=== PATIENT | male | born 1940 | race Caucasian/White ===

== ENCOUNTER 2023-07-13 19:33 | Emergency (ER) | payer BC, SELFPAY ==
[2023-07-13 19:36] VITALS: BP 160/76; PULSE 90; TEMP 37; O2SAT 94; BMI 28.3
--- NOTE | 2023-07-13 19:41 | ED.GENADUL1 ---
HPI HPI - General Adult General Chief complaint: Epistaxis Stated complaint: Epistaxis Time Seen by Provider: 07/13/23 19:35 Source: patient and family Mode of arrival: walk-in History of Present Illness HPI narrative: this 82-year-old male who has a history of heart disease with 3 or 4 coronary stents presents for evaluation of a right-sided nosebleed. The patient states he was sitting watching television when blood started pouring out of the right side of his nose. He states that he soaked through several Corby her cheeks and a Tylenol before coming to the emergency department. He denies any recent nose trauma nasal congestion or nose picking. Upon presentation the bleeding has ceased. He has no chest pain or shortness of breath. He states that other than nosebleed he feels fine.He is unclear exactly what medications he is on but in light of his history of coronary artery disease he is likely on some degree of blood thinners. He denies that he takes any aspirin, He was formerly on aspirin but is not currently on any aspirin. Related Data Home Medications ?Medication ?Instructions ?Recorded ?Confirmed alfuzosin 10 mg tablet,extended 10 mg PO DAILY 07/13/23 07/13/23 release 24 hr atorvastatin 80 mg tablet 80 mg PO QPM 07/13/23 07/13/23 budesonide-formoterol HFA 80 1 puff inhalation DAILY 07/13/23 07/13/23 mcg-4.5 mcg/actuation aerosol inhaler (Breyna) dapagliflozin propanediol 5 mg 5 mg PO DAILY 07/13/23 07/13/23 tablet lisinopril 10 mg tablet 10 mg PO QAM 07/13/23 07/13/23 metformin 850 mg tablet 850 mg PO TID 07/13/23 07/13/23 metoprolol succinate 50 mg 50 mg PO DAILY 07/13/23 07/13/23 tablet,extended release 24 hr potassium citrate 10 mEq (1,080 10 meq PO BID 07/13/23 07/13/23 mg) tablet,extended release spironolactone 25 mg tablet 25 mg PO DAILY 07/13/23 07/13/23 Allergies Allergy/AdvReac Type Severity Reaction Status Date / Time No Known Drug Allergies Allergy Verified 07/13/23 19:41 Opioid HPI Opioid Management Most Recent Opioid Data: Last Pain Scale 7 07/13/23 20:21 Review of Systems ROS Status of ROS 10 or more systems reviewed and unremarkable except as noted in history and below Exam Narrative Exam Narrative: Nurses note and vital signs reviewed and patient is not hypoxic.Blood pressure is elevated at 160/76 General: Alert, nontoxic but mildly anxious elderly male, no respiratory distress Skin: Warm, dry, no pallor noted. There is no rash noted. Head: Normocephalic, atraumatic Eye: Normal conjunctiva, no drainage, EOMI. PERRL Ears, Nose, Mouth, and Throat: oral mucosa is moist. Nares patent. No active bleeding is present, there is a small amount of blood in the posterior nasopharynx, no site of bleeding is able to be visualized. Cardiovascular: Regular Rate and Rhythm Respiratory: Patient is in no distress, no accessory muscle use, lungs are clear to auscultation, no wheezing, rales or rhonchi Back: non-tender, no CVA tenderness bilaterally to percussion. GI: Normal bowel sounds, no tenderness to palpation, no masses appreciated. No rebound, guarding, or rigidity noted. Musculoskeletal: The patient has no evidence of calf tenderness, no pitting edema, symmetrical pulses noted bilaterally Neurological: A&O x4, normal speech Psychiatric: Cooperative Constitutional Vital Signs, click to edit/add: Last Vital Signs Temp 98.6 F 07/13/23 19:36 Pulse 90 07/13/23 19:36 Resp 18 07/13/23 19:36 BP 160/76 H 07/13/23 19:36 Pulse Ox 94 L 07/13/23 19:36 O2 Del Method Room Air 07/13/23 19:36 Course Vital Signs Vital signs: Vital Signs Temperature 98.6 F 07/13/23 19:36 Pulse Rate 90 07/13/23 19:36 Respiratory Rate 18 07/13/23 19:36 Blood Pressure 160/76 H 07/13/23 19:36 Pulse Oximetry 94 L 07/13/23 19:36 Oxygen Delivery Method Room Air 07/13/23 19:36 Temperature 98.6 F 07/13/23 19:36 Pulse Rate 90 07/13/23 19:36 Respiratory Rate 18 07/13/23 19:36 Blood Pressure 160/76 H 07/13/23 19:36 Pulse Oximetry 94 L 07/13/23 19:36 Oxygen Delivery Method Room Air 07/13/23 19:36 Medical Decision Making [facility] Narrative Medical decision making narrative: This 82-year-old male presents for evaluation of acute onset of right sided epistaxis. He denies any nasal trauma or recent congestion. He does not have any headache. The patient's weight she was watching TV and suddenly had bleeding from the right nares. The bleeding had mostly subsided upon arrival to emergency department. There was a small amount of blood in the right exterior nasopharynx. Blood pressure was mildly elevated upon arrival at 160/76. It is unclear exactly what medications he is on however he does have a cardiac history and is likely on some blood thinners. He is otherwise hemodynamically stable with no complaints of pain. A Merocel was placed into the right nares for control of the bleeding. Routine labs ordered and are reviewed. He has normal white count and hemoglobin. Platelet count is normal at 170. Electrolytes are normal. He was monitored in the emergency department for approximately one hour after the packing was placed and he is not having any excessive bleeding. Anticipatory guidance was given to the patient and his . He was sent home with the Afrin and told that he can spray the Afrin onto the Murocel to keep it moist and help constrict any bleeding blood vessels. I suggested that he gently remove the packing in 24-36 hours. I explained that I cannot is a big whether or not the bleeding will recur but if it should recur or he is welcome to come back to the emergency department. Lab Data Labs: Lab Results 07/13/23 Range/Units 20:03 WBC 7.4 (4.0-11.0) 10^3/uL RBC 3.63 L (4.70-6.10) 10^6/uL Hgb 11.2 L (14.0-18.0) g/dL Hct 36.5 L (42.0-54.0) % MCV 100.6 H (80.0-94.0) fL MCH 30.9 (25.9-34.0) pg MCHC 30.7 (29.9-35.2) g/dL RDW 13.7 (11.0-15.0) % Plt Count 170 (150-450) 10^3/uL MPV 10.7 (9.5-13.5) fL Neut % (Auto) 49.8 (43.0-75.0) % Lymph % (Auto) 33.9 (20.5-60.0) % Hoke % (Auto) 10.8 (1.7-12.0) % Eos % (Auto) 4.0 (0.9-7.0) % Baso % (Auto) 0.7 (0.2-2.0) % Neut # (Auto) 3.7 (1.4-6.5) 10^3/uL Lymph # (Auto) 2.5 (1.2-3.8) 10^3/uL Hoke # (Auto) 0.8 (0.3-0.8) 10^3/uL Eos # (Auto) 0.3 (0.0-0.7) 10^3/uL Baso # (Auto) 0.1 (0.0-0.1) 10^3/uL Abs Immat Gran (auto) 0.06 H (0.00-0.03) 10^3/uL Imm/Tot Granulo (auto) 0.8 H (0.0-0.5) % Sodium 144 (136-145) mmol/L Potassium 4.9 (3.5-5.1) mmol/L Chloride 112 H (98-107) mmol/L Carbon Dioxide 19.2 L (21.0-32.0) mmol/L Anion Gap 17.7 BUN 19.0 H (7.0-18.0) mg/dL Creatinine 1.69 H (0.70-1.30) mg/dL Est GFR ( Amer) 47 L (>=60) Est GFR (Non-Af Amer) 39 L (>=60) BUN/Creatinine Ratio 11.2 Glucose 164 H (74-106) mg/dL Calcium 8.2 L (8.5-10.1) mg/dL Discharge Plan Discharge Stand Alone Forms: Portal Instructions Chief Complaint: Epistaxis Clinical Impression: Epistaxis Patient Disposition: Home, Self-Care Time of Disposition Decision: 20:57 Prescriptions / Home Meds: No Action alfuzosin 10 mg tablet extended release 24 hr 10 mg PO DAILY atorvastatin 80 mg tablet 80 mg PO QPM budesonide-formoterol [Breyna] 80-4.5 mcg/actuation HFA aerosol inhaler 1 puff INHALATION DAILY dapagliflozin propanediol 5 mg tablet 5 mg PO DAILY lisinopril 10 mg tablet 10 mg PO QAM metformin 850 mg tablet 850 mg PO TID metoprolol succinate 50 mg tablet extended release 24 hr 50 mg PO DAILY potassium citrate 10 mEq (1,080 mg) tablet extended release 10 meq PO BID spironolactone 25 mg tablet 25 mg PO DAILY Print Language: French Instructions: Nosebleed (ED) Referrals: BLANCO OCPELAND [Primary Care Provider] - 1 week Procedures ED Procedure Instructions Procedures Procedures: Procedure Note; Epistaxis management: Afrin nasal spray was Instilled into the right nares and the patient was asked to gently blow his nose to clear any clots. After the clots were cleared a Merocel was cut for comfort and coated with bacitracin and gently instilled into the right nares. Patient tolerated procedure well. He was medicated with Tylenol and monitored in the emergency department.
[2023-07-13] MEDS: BACITRACIN OINTMENT 28.4 GM TUBE 1 APPLIC TOPICAL (20:08)
[2023-07-13] MEDS: OXYMETAZOLINE HCL 0.05% NASAL SPRAY 2 SPRAY NS (20:09)
[2023-07-13 20:10] LABS: Basophils Absolute Auto 0.1 10^3/uL (0.0-0.1); Basophils Percent Auto 0.7 % (0.2-2.0); Eosinophils Absolute Auto 0.3 10^3/uL (0.0-0.7); Hematocrit 36.5 % (42.0-54.0); Hemoglobin 11.2 g/dL (14.0-18.0); Immature Granulocytes Abs Auto 0.06 10^3/uL (0.00-0.03); Immature Granulocytes Pct Auto 0.8 % (0.0-0.5); Lymphocytes Absolute Auto 2.5 10^3/uL (1.2-3.8); Lymphocytes Percent Auto 33.9 % (20.5-60.0); Mean Corpuscular HGB Conc 30.7 g/dL (29.9-35.2); Mean Corpuscular Hemoglobin 30.9 pg (25.9-34.0); Mean Corpuscular Volume 100.6 fL (80.0-94.0); Mean Platelet Volume 10.7 fL (9.5-13.5); Monocytes Absolute Auto 0.8 10^3/uL (0.3-0.8); Monocytes Percent Auto 10.8 % (1.7-12.0); Neutrophils Absolute Auto 3.7 10^3/uL (1.4-6.5); Neutrophils Percent Auto 49.8 % (43.0-75.0); Platelet Count 170 10^3/uL (150-450); Red Blood Count 3.63 10^6/uL (4.70-6.10); Red Cell Distribution Width 13.7 % (11.0-15.0); White Blood Count 7.4 10^3/uL (4.0-11.0)
[2023-07-13 20:19] LABS: Anion Gap 17.7; BUN Creatinine Ratio 11.2; Calcium 8.2 mg/dL (8.5-10.1); Carbon Dioxide 19.2 mmol/L (21.0-32.0); Chloride 112 mmol/L (98-107); Estimated GFR (African America 47 (>=60); Estimated GFR (Non-African Ame 39 (>=60); Glucose 164 mg/dL (74-106); Potassium 4.9 mmol/L (3.5-5.1); Sodium 144 mmol/L (136-145)
[2023-07-13] MEDS: ACETAMINOPHEN 325 MG TABLET 650 MG PO (20:21)
== END 2023-07-13 21:17 | disposition home or self-care (01) ==
PROVIDERS: Emergency Provider Emergency Medicine; PCP Family Medicine
DX: R04.0 Epistaxis (principal); Z95.5 Presence of coronary angioplasty implant and graft; I25.10 Atherosclerotic heart disease of native coronary artery without angina pectoris; Z79.899 Other long term (current) drug therapy; Z79.84 Long term (current) use of oral hypoglycemic drugs
CPT/HCPCS: 30901; 36415; 80048; 85025; 99283

== ENCOUNTER 2023-07-15 19:05 | Emergency (ER) | payer BC, SELFPAY ==
[2023-07-15 19:10] VITALS: BP 160/83; PULSE 85; TEMP 37.1; O2SAT 93; BMI 28.5
[2023-07-15] MEDS: SILVER NITRATE APPLICATOR STICK 1 APPLIC TOPICAL (19:30)
--- NOTE | 2023-07-15 19:36 | ED_ITS ---
HPI - Epistaxis General Chief Complaint: Epistaxis Stated Complaint: cont nose bleed, was here Time Seen by Provider: 07/15/23 19:10 Source: patient Mode of arrival: walk-in Limitations: no limitations History of Present Illness HPI Narrative: 82-year-old male presents for nosebleed. He was seen here few days ago and had Merisel packing placed in the right nares. He was going to remove it today but he had some bleeding from the left side. He does not take a blood thinner. No other bleeding such as from his gums or easy bruising. He had some negative blood work a few days ago including platelet count. No trauma. Related Data Home Medications ?Medication ?Instructions ?Recorded ?Confirmed alfuzosin 10 mg tablet,extended 10 mg PO DAILY 07/13/23 07/13/23 release 24 hr atorvastatin 80 mg tablet 80 mg PO QPM 07/13/23 07/13/23 budesonide-formoterol HFA 80 1 puff inhalation DAILY 07/13/23 07/13/23 mcg-4.5 mcg/actuation aerosol inhaler (Breyna) dapagliflozin propanediol 5 mg 5 mg PO DAILY 07/13/23 07/13/23 tablet lisinopril 10 mg tablet 10 mg PO QAM 07/13/23 07/13/23 metformin 850 mg tablet 850 mg PO TID 07/13/23 07/13/23 metoprolol succinate 50 mg 50 mg PO DAILY 07/13/23 07/13/23 tablet,extended release 24 hr potassium citrate 10 mEq (1,080 10 meq PO BID 07/13/23 07/13/23 mg) tablet,extended release spironolactone 25 mg tablet 25 mg PO DAILY 07/13/23 07/13/23 Allergies Allergy/AdvReac Type Severity Reaction Status Date / Time No Known Drug Allergies Allergy Verified 07/15/23 19:09 Review of Systems ROS Narrative A ten point review of systems is negative except as noted above. Exam Narrative Exam Narrative: Nurses note and vital signs reviewed and patient is not hypoxic. General: The patient appears well and in no apparent distress. Patient is resting comfortably on cart. Skin: Warm, dry, no pallor noted. There is no rash noted. No ecchymosis or petechia Head: Normocephalic, atraumatic Eye: Normal conjunctiva, no drainage Ears, Nose, Mouth, and Throat: oral mucosa is moist. Packing placed in the right nares. No active bleeding. Cardiovascular: Not tachycardic Respiratory: Patient is in no distress, no accessory muscle use, lungs are clear to auscultation, no wheezing, rales or rhonchi Back: non-tender GI: Soft and nontender Musculoskeletal: The patient has no evidence of calf tenderness, no pitting edema, symmetrical pulses noted bilaterally Neurological: A&O, normal speech Psychiatric: Cooperative Constitutional Vital Signs, click to edit/add: Last Vital Signs Temp 98.7 F 07/15/23 19:10 Pulse 85 07/15/23 19:10 Resp 18 07/15/23 19:10 BP 160/83 H 07/15/23 19:10 Pulse Ox 93 L 07/15/23 19:10 O2 Del Method Room Air 07/15/23 19:10 Course Vital Signs Vital signs: Vital Signs Temperature 98.7 F 07/15/23 19:10 Pulse Rate 85 07/15/23 19:10 Respiratory Rate 18 07/15/23 19:10 Blood Pressure 160/83 H 07/15/23 19:10 Pulse Oximetry 93 L 07/15/23 19:10 Oxygen Delivery Method Room Air 07/15/23 19:10 Temperature 98.7 F 07/15/23 19:10 Pulse Rate 85 07/15/23 19:10 Respiratory Rate 18 07/15/23 19:10 Blood Pressure 160/83 H 07/15/23 19:10 Pulse Oximetry 93 L 07/15/23 19:10 Oxygen Delivery Method Room Air 07/15/23 19:10 MDM - Epistaxis MDM Narrative Medical decision making narrative: The following procedure was performed by me. The nasal packing on the right side was removed. I have carried out silver nitrate cautery on both sides of the nasal septum. He was watched for an hour and a half and had no further bleeding and is able to be discharged home. Findings are discussed with the patient and his . Differential Diagnosis Differential diagnosis: Likely anterior epistaxis and posterior epistaxis Medical Records Attestation: I reviewed the patient's medical records. Discharge Plan Discharge Stand Alone Forms: Portal Instructions Chief Complaint: Epistaxis Clinical Impression: Epistaxis Patient Disposition: Home, Self-Care Time of Disposition Decision: 21:24 Condition: Good Mode of Transportation: Private Vehicle Prescriptions / Home Meds: No Action alfuzosin 10 mg tablet extended release 24 hr 10 mg PO DAILY atorvastatin 80 mg tablet 80 mg PO QPM budesonide-formoterol [Breyna] 80-4.5 mcg/actuation HFA aerosol inhaler 1 puff INHALATION DAILY dapagliflozin propanediol 5 mg tablet 5 mg PO DAILY lisinopril 10 mg tablet 10 mg PO QAM metformin 850 mg tablet 850 mg PO TID metoprolol succinate 50 mg tablet extended release 24 hr 50 mg PO DAILY potassium citrate 10 mEq (1,080 mg) tablet extended release 10 meq PO BID spironolactone 25 mg tablet 25 mg PO DAILY Print Language: [place] Islander Instructions: Nosebleed (ED) Referrals: BLANCO COPELAND [Primary Care Provider] - 1 week
== END 2023-07-15 21:31 | disposition home or self-care (01) ==
PROVIDERS: Emergency Provider Emergency Medicine; PCP Family Medicine
DX: R04.0 Epistaxis (principal); Z79.899 Other long term (current) drug therapy; Z79.84 Long term (current) use of oral hypoglycemic drugs
CPT/HCPCS: 30901; 30905; 99282

== ENCOUNTER 2023-07-16 21:55 | Emergency (ER) | payer BC, SELFPAY ==
[2023-07-16 21:59] VITALS: BP 148/114; PULSE 84; TEMP 36.4; O2SAT 93; BMI 28.5
[2023-07-16] MEDS: TRANEXAMIC ACID 1,000 MG/10 ML AMPUL 500 MG IH (22:30)
--- NOTE | 2023-07-16 22:43 | ED_ITS ---
HPI - Epistaxis General Chief Complaint: Epistaxis Stated Complaint: EPISTAXIS Time Seen by Provider: 07/16/23 21:57 Source: patient and family Mode of arrival: walk-in Limitations: no limitations History of Present Illness HPI Narrative: This 82-year-old male who was seen by myself on night and again again last night presents for the 3rd time for pr epistaxis. When I initially saw him he was having bleeding on the right side. A merocel dressing was placed into the right side and bleeding subsided. He apparently removed the merocel and had recurrent bleeding yesterday. Last night the bleeding sites were cauterized and the patient's bleeding stopped. This evening the bleeding recurred from the right nostril. The patient does not take any blood thinners. He had a moderate amount of blood in a bucket blood in a bucket from the from the nosebleed. He denies any headache. He does not have a fever. He does not have a history of nosebleeds. He denies any headache. He has not had a fever. He does not have a history of nosebleeds. Related Data Home Medications ?Medication ?Instructions ?Recorded ?Confirmed alfuzosin 10 mg tablet,extended 10 mg PO DAILY 07/13/23 07/16/23 release 24 hr atorvastatin 80 mg tablet 80 mg PO QPM 07/13/23 07/16/23 budesonide-formoterol HFA 80 1 puff inhalation DAILY 07/13/23 07/16/23 mcg-4.5 mcg/actuation aerosol inhaler (Breyna) dapagliflozin propanediol 5 mg 5 mg PO DAILY 07/13/23 07/13/23 tablet lisinopril 10 mg tablet 10 mg PO QAM 07/13/23 07/16/23 metformin 850 mg tablet 850 mg PO TID 07/13/23 07/16/23 metoprolol succinate 50 mg 50 mg PO DAILY 07/13/23 07/16/23 tablet,extended release 24 hr potassium citrate 10 mEq (1,080 10 meq PO BID 07/13/23 07/13/23 mg) tablet,extended release spironolactone 25 mg tablet 25 mg PO DAILY 07/13/23 07/16/23 insulin degludec 100 unit/mL (3 unit subcut 07/16/23 mL) subcutaneous pen (Tresiba FlexTouch U-100 insulin) liraglutide 0.6 mg/0.1 mL (18 mg/3 mg subcut 07/16/23 mL) subcutaneous pen injector (Victoza 3-Pete) Allergies Allergy/AdvReac Type Severity Reaction Status Date / Time No Known Drug Allergies Allergy Verified 07/15/23 19:09 Review of Systems ROS Status of ROS 10 or more systems reviewed and unremark able except as noted in history and below Exam Narrative Exam Narrative: Nurses note and vital signs reviewed and patient is not hypoxic. Blood pressure is noted to be elevated at 148/114 General: The patient appears well and in no apparent distress, active nasal bleeding is present on the right side Skin: Warm, dry, no pallor noted. There is no rash noted. Head: Normocephalic, atraumatic Eye: Normal conjunctiva, no drainage, EOMI. PERRL Ears, Nose, Mouth, and Throat: oral mucosa is moist. Moderate active nasal bleeding noted on the right side, no precise source of bleeding is appreciated Cardiovascular: Regular Rate and Rhythm S1S2 Respiratory: Patient is in no distress, no accessory muscle use, lungs are clear to auscultation, no wheezing, rales or rhonchi Musculoskeletal: The patient has no evidence of calf tenderness, no pitting edema, symmetrical pulses noted bilaterally Neurological: A&O x4, normal speech Psychiatric: Cooperative Constitutional Vital Signs, click to edit/add: Last Vital Signs Temp 97.5 F L 07/16/23 21:59 Pulse 84 07/16/23 21:59 Resp 16 07/16/23 21:59 BP 148/114 H 07/16/23 21:59 Pulse Ox 93 L 07/16/23 21:59 O2 Del Method Room Air 07/16/23 21:59 Course Vital Signs Vital signs: Vital Signs Temperature 97.5 F L 07/16/23 21:59 Pulse Rate 84 07/16/23 21:59 Respiratory Rate 16 07/16/23 21:59 Blood Pressure 148/114 H 07/16/23 21:59 Pulse Oximetry 93 L 07/16/23 21:59 Oxygen Delivery Method Room Air 07/16/23 21:59 Temperature 97.5 F L 07/16/23 21:59 Pulse Rate 84 07/16/23 21:59 Respiratory Rate 16 04/14/24 21:59 Blood Pressure 148/114 H 07/16/23 21:59 Pulse Oximetry 93 L 07/16/23 21:59 Oxygen Delivery Method Room Air 07/16/23 21:59 MDM - Epistaxis MDM Narrative Medical decision making narrative: Pt re-evaluated after the nasal packing with Rhinorocket and bleeding has stopped at this time. He was instructed to leave the packing in for 36-48 hours this time as this is his 3rd visit for the nose bleeding. He is in agreement with this plan and will be referred to outpatient ENT Discharge Plan Discharge Stand Alone Forms: Portal Instructions Chief Complaint: Epistaxis Clinical Impression: Epistaxis Patient Disposition: Home, Self-Care Time of Disposition Decision: 23:11 Condition: Good Prescriptions / Home Meds: No Action Victoza 3-Pete 0.6 mg/0.1 mL (18 mg/3 mL) pen injector SUBCUT insulin degludec [Tresiba FlexTouch U-100] 100 unit/mL (3 mL) insulin pen SUBCUT alfuzosin 10 mg tablet extended release 24 hr 10 mg PO DAILY atorvastatin 80 mg tablet 80 mg PO QPM budesonide-formoterol [Breyna] 80-4.5 mcg/actuation HFA aerosol inhaler 1 puff INHALATION DAILY dapagliflozin propanediol 5 mg tablet 5 mg PO DAILY lisinopril 10 mg tablet 10 mg PO QAM metformin 850 mg tablet 850 mg PO TID metoprolol succinate 50 mg tablet extended release 24 hr 50 mg PO DAILY potassium citrate 10 mEq (1,080 mg) tablet extended release 10 meq PO BID spironolactone 25 mg tablet 25 mg PO DAILY Print Language: Scottish Instructions: Nosebleed (ED) Additional Instructions: Follow up with ENT. Return to the ED or PCPs office for packing removal as the air in the packing must be removed before it can be taken out. Referrals: Meaghan Toney MD [Physician] - 1 week BLANCO COPELAND [Primary Care Provider] - 1 week Procedures ED Procedure Instructions Procedures Procedures: Epistaxis treatment: Pt was asked to gently blow his nose to clear any clots, he was able to do this and the bleeding stopped, TXA was placed into the right nostril with a nasal atomizer and pressure was applied for one minute. A 5.5cm Rhinorocket was then placed into the right nostril and inflated.
[2023-07-16] MEDS: ACETAMINOPHEN 325 MG TABLET 650 MG PO (23:30)
[2023-07-16 23:39] VITALS: BP 138/82
== END 2023-07-16 23:39 | disposition home or self-care (01) ==
PROVIDERS: Emergency Provider Emergency Medicine; PCP Family Medicine
DX: R04.0 Epistaxis (principal); Z79.84 Long term (current) use of oral hypoglycemic drugs; Z79.899 Other long term (current) drug therapy; Z79.4 Long term (current) use of insulin
CPT/HCPCS: 30901; 99283

== ENCOUNTER 2023-10-28 09:49 | Outpatient (OUT) | payer BC, SELFPAY ==
[2023-10-28 10:15] LABS: Anion Gap 19.3; BUN Creatinine Ratio 16.6; Calcium 8.6 mg/dL (8.5-10.1); Carbon Dioxide 18.2 mmol/L (21.0-32.0); Chloride 110 mmol/L (98-107); Estimated GFR (African America 39 (>=60); Estimated GFR (Non-African Ame 32 (>=60); Glucose 203 mg/dL (74-106); Potassium 5.5 mmol/L (3.5-5.1); Sodium 142 mmol/L (136-145)
== END 2023-10-28 09:50 | disposition home or self-care (01) ==
LOC: LAB 09:51
PROVIDERS: PCP Family Medicine; Visit Provider Nurse Practitioner
DX: I50.20 Unspecified systolic (congestive) heart failure (principal)
CPT/HCPCS: 36415; 80048

== ENCOUNTER 2023-11-20 13:56 | Outpatient (OUT) | payer BC, SELFPAY ==
--- NOTE | 2023-11-20 14:00 | CA_ITS ---
Patient Name: BERNY MARTEL MR#: [id number] : 1940 Exam Date: 11/20/2023 Ordering Doctor: BITA BRADLEY ECHOCARDIOGRAM REPORT PROCEDURE: CA ECHO DOPPLER COMPLETE INDICATIONS: Congestive heart failure, SD - stents, hypertension, diabetes COMPARISON: None. DESCRIPTION: COMPLETE ECHOCARDIOGRAM Real-time transthoracic echocardiography with 2D, M-mode, spectral and color flow Doppler performed. QUALITY: Technically difficult parasternal images due to patients condition. LEFT VENTRICLE: Normal chamber size. Mild concentric left ventricular hypertrophy. Global systolic function is at the lower limits of normal. There is akinesis of the basal and mid inferior wall with good contractility of the remaining segments. LV EF: Lower limits of normal left ventricular ejection fraction, (50-55%). DIASTOLIC: Grade II diastolic dysfunction. ATRIAL SEPTUM: Visually appears intact. LEFT ATRIUM: Moderate dilatation. RIGHT ATRIUM: Mild dilatation. RIGHT VENTRICLE: Normal chamber size. Normal right ventricular systolic function. TRICUSPID VALVE: Normal mobility and thickness. No stenosis with no regurgitation. Unable to assess right-sided pressures due to lack of measurable tricuspid regurgitation. MITRAL VALVE: Normal mobility and thickness. No evidence of mitral valve stenosis. There is no mitral annular calcification. AORTIC VALVE: Not well visualized. No evidence of aortic valve stenosis. No aortic regurgitation. AORTIC ROOT: Normal diameter and appearance. PULMONIC VALVE: Not well visualized. PERICARDIUM: No evidence of pericardial effusion. IVC: PLEURA: CONCLUSION: 1. Mild concentric left ventricular hypertrophy. Left ventricular systolic function is at the lower limits of normal with segmental wall motion abnormalities. LVEF is estimated at 50 to 55%. 2. Normal right ventricular size and systolic function. 3. No significant valvular dysfunction. 4. Grade 2 diastolic dysfunction. 5. No pericardial effusion. Adult Echocardiography Procedure Report Left Ventricle LVEDD (3.7 - 5.6 cm): 3.97 cm LVESD (2.2 - 4.0 cm): 2.62 cm LVIVS thickness (0.6 - 1.2 cm): 1.12 cm LVPW thickness (0.5 - 1.0 cm): 1.40 cm e': 0.10 m/s E - e': 7.61 LVOT Max Gradient: 3.68 mm[Hg] LVOT Area (cm2): 0.96 m/s Peak Velocity (LVOT): 0.96 m/s Mean Velocity (LVOT): 0.67 m/s LVOT Diameter 1.96 cm Left Atrium LA Volume Index (2D A2C): 48.33 ml/m2 Left Atrium Systolic Dimension: 3.28 cm Mitral Valve MV E to A Ratio: 0.68 Mitral Valve A-Wave Peak Velocity: 1.11 m/s Mitral Valve E-Wave Peak Velocity: 0.75 m/s Right Ventricle Aorta AO Root Diam: 3.70 cm Aortic Valve AoV Area (Peak Prashanth): 2.28 cm2, 2.28 cm2 AoV Area (VTI): 2.49 cm2, 2.49 cm2 Peak Velocity(Antegrade Flow): 1.27 m/s Peak Gradient(Antegrade Flow): 6.41 mm[Hg] Mean Velocity(Antegrade Flow): 0.87 m/s Mean Gradient(Antegrade Flow): 3.38 mm[Hg] Velocity Time Integral: 28.37 cm Tricuspid Valve Pulmonic Valve Right Atrium Right Atrium Systolic Pressure: 60.89 ml, 60.89 ml Dictated by: Donald Luo MD on 11/20/2023 at 13:15 Approved by: Donald Luo M.D. on 11/24/2023 at 13:19
== END 2023-11-20 13:57 | disposition home or self-care (01) ==
LOC: CARD 13:56
PROVIDERS: PCP Family Medicine; Visit Provider Nurse Practitioner
DX: E78.2 Mixed hyperlipidemia (principal); I50.20 Unspecified systolic (congestive) heart failure; I50.22 Chronic systolic (congestive) heart failure; I11.0 Hypertensive heart disease with heart failure
CPT/HCPCS: 93306